=== PATIENT | male | born 1960 | race Caucasian/White ===

== ENCOUNTER 2022-12-24 17:19 | Emergency (ER) | payer BC ==
[2022-12-24] MEDS ORDERED: Sodium Chloride 0.9% 10 ML Syringe FLUSH PRN (17:45)
[2022-12-24] MEDS: Sodium Chloride 0.9% 1,000 ML IV ONE (18:12)
[2022-12-24] MEDS: predniSONE 20 MG Tab PO ONE (18:15)
[2022-12-24 18:18] LABS: BASOPHILS ABSOLUTE AUTO 0.02 K/uL (0.00-0.20); BASOPHILS PERCENT AUTO 0.1 % (0.0-2.0); EOSINOPHILS ABSOLUTE AUTO 0.02 K/uL (0.00-0.50); EOSINOPHILS PERCENT AUTO 0.1 % (0.0-5.0); HEMATOCRIT 41.9 % (39.0-49.0); HEMOGLOBIN 13.8 g/dL (13.1-16.8); LYMPHOCYTES ABSOLUTE AUTO 0.97 K/uL (0.50-3.50); LYMPHOCYTES PERCENT AUTO 6.2 % (10.0-50.0); MEAN CORPUSCULAR HEMOGLOBIN 28.6 pg (28.2-33.3); MEAN CORPUSCULAR HGB CONC 32.9 g/dL (31.7-36.0); MEAN CORPUSCULAR VOLUME 86.9 fL (84.0-98.0); MONOCYTES ABSOLUTE AUTO 1.12 K/uL (0.00-1.00); MONOCYTES PERCENT AUTO 7.1 % (2.0-14.0); NEUTROPHILS ABSOLUTE AUTO 13.54 K/uL (1.40-7.00); NEUTROPHILS PERCENT AUTO 86.5 % (45.0-80.0); PLATELET COUNT,PLT 172 K/uL (150-350); RED BLOOD CELL COUNT 4.82 M/uL (4.33-5.41); RED CELL DISTRIBUTION WIDTH 14.5 % (11.2-14.1); WHITE BLOOD CELL COUNT,WBC 15.7 K/uL (4.0-10.2)
[2022-12-24 18:38] LABS: ALANINE AMINOTRANSFERASE,ALT 36 U/L (12-78); ALBUMIN 3.1 g/dL (3.4-5.0); ALKALINE PHOSPHATASE 72 IU/L (46-116); ASPARTATE AMNIOTRANSFERASE,AST 27 U/L (15-37); BILIRUBIN TOTAL 0.5 mg/dL (0.2-1.0); BLOOD UREA NITROGEN,BUN 31 mg/dL (7-18); CALCIUM 8.3 mg/dL (8.5-10.1); CARBON DIOXIDE,CO2 28.7 mmol/L (21.0-32.0); CHLORIDE,CL 100 mmol/L (98-107); CREATININE 1.88 mg/dL (0.51-1.17); GLUCOSE RANDOM 298 mg/dL (70-99); PROTEIN TOTAL,TP 7.4 g/dL (6.4-8.2); SODIUM,NA 135 mmol/L (136-145)
[2022-12-24 18:40] LABS: ANION GAP 10.3 meq/L (7-15); ESTIMATED GFR 40 mL/min (>=60)
[2022-12-24 18:56] LABS: C-REACTIVE PROTEIN 27.7 mg/dL (<=0.9)
[2022-12-24 19:51] VITALS: BP 140/72; PULSE 72
[2022-12-29 21:47] LABS: ANTIMYELOPEROXIDASE ABS <0.2 units (0.0-0.9); ANTIPROTEINASE 3 (PR-3) ABS <0.2 units (0.0-0.9); ATYPICAL PANCA <1:20 titer (Neg:<1:20); CYTOPLASMIC (C-ANCA) <1:20 titer (Neg:<1:20); PERINUCLEAR (P-ANCA) <1:20 titer (Neg:<1:20)
== END 2022-12-24 19:23 | disposition home or self-care (01) ==
LOC: LL.ED 17:19
DX: I77.6 Arteritis, unspecified (principal); I10 Essential (primary) hypertension; Z79.899 Other long term (current) drug therapy; Z91.048 Other nonmedicinal substance allergy status
CPT/HCPCS: 36415; 80053; 83520; 85025; 85652; 86140; 86256; 99283; 99284; J7030; J7512